=== PATIENT | female | born 1995 | race Caucasian/White ===

== ENCOUNTER 2024-02-11 11:01 | Outpatient (AMB) | payer BC, SELFPAY ==
--- NOTE | 2024-02-11 11:17 | A.OFFPC_ITS ---
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 Intake Note: new patient to establish care Emergency Communications Officer Required: No Allergies No Known Allergies Allergy (Verified 02/11/24 11:35) Medication List - Last Reconciled 02/11/24 by JANNET Quinn No Known Home Meds Tobacco use date assessed: 02/11/24 Dental Screening Dental Screen Date: 02/11/24 Did you have a dental visit in the last 12 months?: Yes Did you have a dental problem in the last 6 months where you did not have access to dental care?: No Was dental information given to patient?: Patient has dentist HPI HPI Comments History of Present Illness Details 29-year-old female with mitral valve pro lapse, ADHD, childhood asthma, hx of vertebral fracture (sports injury in childhood), Social: , Gis Mapping Technician for [employer] hx: Dad prostate ca, 1 brother, 1 sister LACY & MDD, Maternal aunt (twin) MVP, Dad w/ heart murmur and Afib Surgical: none Health Maintenance: * PAP overdue, will have this done w/ DOG GROOMER * Tdap > 10 years, will defer to DOG GROOMER * Declined flu Specialists: [facility] Here [facility] to [facility] care, no previous PCP No medical records Overall she feels well and this is looking to establish care with a primary care provider and have a complete physical exam. She was 1 month ago and plans to try conceiving in April or May of 2024. She self referred to freedom of information officer and has an upcoming appointment. She does report having some heavy periods that started in November. Reports that she was feeling dizzy and did have episodes of vomiting. This continued for a few months. She did go to urgent care and reports having normal labs along with a negative test. She was given a prescription for meclizine and felt much better. At the current time her periods are more normal. She was diagnosed with mitral valve prolapse at age 8. She was told that it was low-grade and needed to have an echocardiogram every 5 years. Reports that her last echocardiogram was 5 years ago. She would like a referral to Cardiology. She reports that she has not had any episodes related to MVP in several years. Reports that her symptoms are well managed with proper hydration. She was diagnosed with ADHD in childhood. Was treated with Ritalin and then Adderall. She stopped taking Adderall in her senior year of college as she did not like the way that this made her feel. She reports that her ADHD is well controlled without medications at the current time Has a history of childhood asthma. She is not currently having any symptoms. Does not have a rescue inhaler. Does not feel like she needs 1. Vision: normal w/o glasses, UTD on eye exam Plan: Advised patient to start vitamin. Available [id number]. Follow up with grades 1 6 tutor as scheduled. I have ordered an echocardiogram and also place a cardiac referral at [facility]. I have ordered routine screening labs today. I would like to see her back in 1 year for complete physical exam, sooner as needed [facility] Medical History (Updated 02/11/24 @ 12:48 by Josefina Renner [facility]) Mitral valve prolapse Asthma ADHD Surgical History (Updated 02/11/24 @ 11:26 by José Luis Garza MA) No pertinent past surgical history Family History Sister Mental health disorder Father Prostate cancer Hypertension Diabetes Cardiovascular disease Brother Asthma Social History (Updated 02/11/24 @ 11:23 by José Luis Garza MA) Household Members: Spouse Both parents involved: No Caregiver staying overnight: No Housing: House Are you a primary rn palliative care to a significant other at home: No Do you presently have visiting nurse or other home services: No 75 years or older and lives alone: No Alcohol intake: current Alcohol intake frequency: a few times a month Patient Tobacco Use Status: Never used Tobacco e-Cigarette/Vaping Use: Never Used Second Hand Smoke Exposure: No service: No Current occupational status: employed Current occupation: programmer analyst consultant Cognitive needs: No Hearing needs: No Vision needs: No Questionnaire PHQ-9 Over the last 2 weeks, how often have you been bothered by any of the following problems? 1. Little interest or pleasure in doing things: not at all 2. Feeling down, depressed, or hopeless: not at all 3. Trouble falling or staying asleep, or sleeping too much: not at all 4. Feeling tired or having little energy: several days 5. Poor appetite or overeating: not at all 6. Feeling bad about yourself - or that you are a failure or have let yourself or your family down: not at all 7. Trouble concentrating on things, such as reading the newspaper or watching television: not at all 8. Moving or speaking so slowly that other people could have noticed. Or the opposite - being so fidgety or restless that you have been moving around a lot more than usual: not at all 9. Thoughts that you would be better off or of hurting yourself in some way: not at all Total score: 1 Depression Screening Interpretation: Negative Depression Screening Done: Yes 31111 - PHQ-9 Billing: Yes Source: Developed by Drs. Lenard Olivarez, Anitra Awan, Elan Nice and colleagues, with an educational alexy from [employer]. Thrive Questionnaire Date Thrive assessed: 02/11/24 I am a: Patient What is your living situation today?: I have a steady place to live Within the past 12 months, did the food you bought not last and you didn't have the money to get more?: Never true Within the past 12 months, did you worry whether your food would run out before you got money to buy more?: Never true Do you have trouble paying for medicines?: No Do you have trouble getting transportation to medical appointments?: No Do you have trouble paying your heating and electricity bill?: No Do you have trouble taking care of your child, family member or friend?: No Do you have trouble with day-to-day activities such as bathing, preparing meals, shopping, managing finances, etc.?: No Are you currently unemployed and looking for a job?: No Are you interested in more education?: No Please select the resources that you would like help with: None Currently or been in a relationship where the following occur: No concerns reported THRIVE Score: 0 AUDIT C Alcohol Use Questionnaire (AUDIT-C) 1. How often do you have a drink containing alcohol?: 2-4 times a month 2. How many drinks containing alcohol do you have on a typical day when you are drinking?: 3 or 4 3. How often do you have six or more drinks on one occasion?: Never Total Score: 3 Score Reviewed/Action Taken: Yes LACY-7 AMB Questionnaire LACY-7 Date LACY - 7 assessed: 02/11/24 Feeling nervous, anxious, or on edge: 0 = Not at all Not being able to stop or control worryin = Not at all Worrying too much about different things: 0 = Not at all Trouble relaxin = Not at all Being so restless that it is hard to sit still: 0 = Not at all Becoming easily annoyed or irritable: 0 = Not at all Feeling afraid as if something awful might happen: 0 = Not at all Total LACY-7 score (0-4 normal; 5-9 mild; 10-14 moderate; 15-21 severe): 0 Source: Developed by Drs. Lenard Olivarez, Anitra Awan, Elan Nice and colleagues, with an educational alexy from [employer]. LACY-7 Assessment Billing LACY-7 Assessment Tool: LACY-7 Assessment 15379 ACT Questionnaire In the past 4 weeks, how much of the time did your asthma keep you from getting as much done at work, school or at home?: None of the time During the past 4 weeks, how often have you had shortness of breath?: Not at all During the past 4 weeks, how often did your asthma symptoms wake you up at night or earlier than usual in the morning?: Not at all During the past 4 weeks, how often have you had to use your rescue inhaler or nebulizer medication?: Not at all How would you rate your asthma control during the past 4 weeks?: Completely controlled ACT Interpretation: Negative Score: 25 Physical exam (Primary Care) Vital Signs: Last Vital Signs Pulse 60 02/11/24 11:27 Resp 13 02/11/24 11:27 BP 122/87 02/11/24 11:27 Pulse Ox 98 02/11/24 11:27 Oxygen Delivery Method Room Air 02/11/24 11:27 BMI result Body Mass Index 23.2 Tobacco/Smoking Status: Tobacco use Status Tobacco use date assessed 02/11/24 02/11/24 11:27 Patient Tobacco Use Status Never used Tobacco 02/11/24 11:27 e-Cigarette/Vaping Use Never Used 02/11/24 11:27 PHQ-9: PHQ-9 Score PHQ-9: Total score 1 02/11/24 11:51 Depression Screening Interpretation: Negative Thrive Assessment: Date of Thrive Assessment Date Thrive assessed 02/11/24 02/11/24 11:19 Currently or been in a relationship where the following occur: No concerns reported Const Other: General: Well developed, well nourished, in no acute distress. Appears stated age. Head: Normocephalic, atraumatic. Eyes: Pupils are equal, round and reactive to light and accommodation. Conjunctivae are clear. Vision grossly normal. Ears: TMs clear AU, EACS WNL Nose: Patent, without discharge. Mouth: There are no ulcers or lesions noted. No inflammation, no post nasal drip, no plaques nor exudates. Neck: Supple, no adenopathy or thyromegaly. Lungs: Clear to auscultation bilaterally. No rales, rhonchi or wheeze noted. Good air flow in all moreno. Heart: Regular rate and rhythm. No murmurs, click, rubs or gallops are noted. Abdomen: Bowel sounds present in all quadrants. The abdomen is soft, nontender, with no masses or organomegaly noted. No hernias are noted. Musculoskeletal: Joints are nontender, without swelling, redness, or effusions. Range of motion is observed to be normal. Pulses: Peripheral pulses are equal and palpable bilaterally. Extremities: No clubbing, cyanosis nor edema is noted. Neurologic: Gait and station normal. Cranial Nerves 2-12 intact. Motor strength grossly symmetrical and intact. No sensory loss. Balance normal. Skin: No rashes, ulcers, or lesions noted. Turgor is good. Skin color is good. Hair and nails are without abnormalities. Psych: Normal eye contact, affect and mood appropriate, and normal interactions. Patient is alert and appropriate to context. Coding Level of Care Code New Pt Prev Care 18-39yr(07634 Diagnoses Encounter for general adult medical examination without abnormal findings Z00.00 Mitral valve prolapse I34.1 Desire for Z31.9 Laboratory exam ordered as part of routine general medical examination Z00.00 Menorrhagia with regular cycle N92.0 Menorrhagia type: with regular cycle History of asthma Z87.09 Tetanus, diphtheria, and acellular pertussis (Tdap) vaccination declined Z28.21 Influenza vaccination declined Z28.21 Additional Codes Asthma Control Questionnaire - ACT Interpretation: Negative ([id number]) LACY-7 Assessment Billing - LACY-7 Assessment Tool: LACY-7 Assessment 13473 ([id number]) PHQ-9 - 73706 - PHQ-9 Billing: Yes ([id number]) Assessment & Plan Assessment & Plan (1) Encounter for general adult medical examination without abnormal findings: Code(s): Z00.00 - Encounter for general adult medical examination without abnormal findings (2) Mitral valve prolapse: Code(s): I34.1 - Nonrheumatic mitral (valve) prolapse Category: Medical (3) Desire for : Code(s): Z31.9 - Encounter for procreative management, unspecified Category: Medical (4) Laboratory exam ordered as part of routine general medical examination: Code(s): Z00.00 - Encounter for general adult medical examination without abnormal findings Category: Medical (5) Menorrhagia: Code(s): N92.0 - Excessive and frequent menstruation with regular cycle Category: Medical Qualifiers: Menorrhagia type: with regular cycle Qualified Code(s): N92.0 - Excessive and frequent menstruation with regular cycle (6) History of asthma: Code(s): Z87.09 - Personal history of other diseases of the respiratory system Category: Medical (7) Tetanus, diphtheria, and acellular pertussis (Tdap) vaccination declined: Code(s): Z28.21 - Immunization not carried out because of patient refusal Category: Medical (8) Influenza vaccination declined: Code(s): Z28.21 - Immunization not carried out because of patient refusal Plan . Orders: Orders Complete Blood Count no Diff Today Z00.00 - Encounter for general adult medical examination without abnormal findings Comprehensive Met. Panel Today Z00.00 - Encounter for general adult medical examination without abnormal findings Hemoglobin A1c Today Z00.00 - Encounter for general adult medical examination without abnormal findings IRON PROFILE Today Z00.00 - Encounter for general adult medical examination without abnormal findings Lipid Panel Today Z00.00 - Encounter for general adult medical examination without abnormal findings Microalbumin, Random (w Creat) Today Z00.00 - Encounter for general adult medical examination without abnormal findings Vitamin B12 and Folate Today Z00.00 - Encounter for general adult medical examination without abnormal findings CA echo transthoracic complete Today I34.1 - Nonrheumatic mitral (valve) prolapse, Z31.9 - Encounter for procreative management, unspecified TSH reflex Free T4 Today Z00.00 - Encounter for general adult medical examination without abnormal findings Vitamin D 25-OH Total Today Z00.00 - Encounter for general adult medical examination without abnormal findings Referrals Cardiology Referral I34.1 - Nonrheumatic mitral (valve) prolapse Patient Instructions: Health screenings for women You should visit your health care provider from time to time, even if you are healthy. The purpose of these visits is to: Screen for medical issues Assess your risk for future medical problems Encourage a healthy lifestyle Update vaccinations and other preventive care services Help you get to know your provider in case of an illness Information Even if you feel fine, you should still see your provider for regular checkups. These visits can help you avoid problems in the future. For example, the only way to find out if you have high blood pressure is to have it checked regularly. High blood sugar and high cholesterol levels also may not have any symptoms in the early stages. A simple blood test can check for these conditions. There are specific times when you should see your provider or receive specific health screenings. The [place] Preventive Services Task Force publishes a list of recommended screenings. Below are screening guidelines for women ages 18 to 39. BLOOD PRESSURE SCREENING Your blood pressure should be checked at least once every 3 to 5 years if: Your blood pressure is in the normal range (top number less than 120 mm Hg and bottom number less than 80 mm Hg) You don't have risk factors for high blood pressure Ask your provider if you need your blood pressure checked more often if: The top number is 120 to 129 mm Hg or the bottom number is 70 to 79 mm Hg You have diabetes, heart disease, kidney problems, are overweight, or have certain other health conditions You have a first-degree relative with high blood pressure You are Black You had high blood pressure during a If the top number is 130 mm Hg or greater or the bottom number is 80 mm Hg or greater, this is considered stage 1 hypertension. Schedule an appointment with your provider to learn how you can reduce your blood pressure. Watch for blood pressure screenings in your area. Ask your provider if you can stop in to have your blood pressure checked. BREAST CANCER SCREENING Experts do not agree about the benefits of breast self-exams in finding breast cancer or saving lives. Talk to your provider about what is best for you. A screening mammogram is not recommended for most women under age 40. Your provider may discuss and recommend mammograms, MRI scans, or ultrasounds if you have an increased risk for breast cancer, such as: A mother or sister who had breast cancer at a young age (most often starting screening earlier than the age the close relative was diagnosed) You carry a high-risk genetic marker CERVICAL CANCER SCREENING Cervical cancer screening should start at age 21 years unless your provider advises otherwise. After the first test: Women ages 21 through 29 should have a Pap test every 3 years. Exoprts do not agree on whether HPV testing is recommended for this age group. Women ages 30 through 65 should be screened with either a Pap test every 3 years or the HPV test every 5 years or both tests every 5 years (called cotesting ). Women who have been treated for precancer (cervical dysplasia) should continue to have Pap tests for 20 years after treatment or until age 65, whichever is longer. If you have had your uterus and cervix removed (total hysterectomy), and you have not been diagnosed with cervical cancer or precancer (high grade cervical neoplasia), you do not need cervical cancer screening. CHOLESTEROL SCREENING Cholesterol screening should begin at: Age 45 for women with no known risk factors for coronary heart disease Age 20 for women with known risk factors for coronary heart disease Repeat cholesterol screening should take place: Every 5 years for women with normal cholesterol levels More often if changes occur in lifestyle (including weight gain and diet) More often if you have diabetes, heart disease, kidney problems, or certain other conditions DIABETES SCREENING You should be screened for diabetes starting at age 35 and then repeated every 3 years if you have no risk factors for diabetes. Screening may need to start earlier and be repeated more often if you have other risk factors for diabetes, such as: You have a first degree relative with diabetes. You are overweight or have obesity. You have high blood pressure, prediabetes, or a history of heart disease. Screening for diabetes should be done if you are planning to become and you are overweight and have other risk factors such as high blood pressure. DENTAL EXAM Go to the dentist once or twice every year for an exam and cleaning. Your dentist will evaluate if you need more frequent visits. EYE EXAM Have an eye exam every 5 to 10 years before age 40. If you have vision problems, have an eye exam every 2 years or more often if recommended by your provider. You should have an eye exam that includes an examination of your retina (back of your eye) at least every year if you have diabetes. IMMUNIZATIONS Commonly needed vaccines include: Flu shot: get one every year. COVID-19 vaccine: ask your provider what is best for you. Tetanus-diphtheria and acellular pertussis (Tdap) vaccine: have one at or after age 19 as one of your tetanus-diphtheria vaccines if you did not receive it as an adolescent. Tetanus-diphtheria: have a booster (or Tdap) every 10 years. Varicella vaccine: receive 2 doses if you never had chickenpox or the varicella vaccine. Hepatitis B vaccine: receive 2, 3, or 4 doses, depending on your exact circumstances. Measles, mumps, and rubella (MMR) vaccine: receive 1 to 2 doses if you are not already immune to MMR. Your provider can tell you if you are immune. Ask your provider about the human papillomavirus (HPV) vaccine if: You have not received the HPV vaccine in the past You have not completed the full vaccine series (you should catch up on this shot) Ask your provider if you should receive other immunizations if you have certain health problems that increase your risk for some diseases such as pneumonia. INFECTIOUS DISEASE SCREENING Women who are sexually active should be screened for chlamydia and gonorrhea up until age 25. Women 25 years and older should be screened for chlamydia and gonorrhea if at high risk. Screening for hepatitis C: All adults ages 18 to 79 should get a one-time test for hepatitis C. people should be screened at every . Screening for human immunodeficiency virus (HIV): All people ages 15 to 65 should get a one-time test for HIV. Depending on your lifestyle and medical history, you may also need to be screened for infections such as syphilis and HIV, as well as other infections. PHYSICAL EXAM All adults should visit their provider from time to time, even if they are healthy. The purpose of these visits is to: Screen for disease Assess your risk of future medical problems Encourage a healthy lifestyle Update your vaccinations and other preventive care services Maintain a relationship with a provider in case of an illness Your height, weight, and BMI should be checked at every exam. During your exam, your provider may ask you about: Depression and anxiety Diet and exercise Alcohol and tobacco use Safety issues, such as using seat belts, smoke detectors, and intimate partner violence Your medicines and risk for interactions SKIN SELF-EXAM Your provider may check your skin for signs of skin cancer, especially if you're at high risk, such as if you: Have had skin cancer before Have close relatives with skin cancer Have a weakened immune system OTHER SCREENING Talk with your provider about colon cancer screening if you have a strong family history of colon cancer or polyps, or if you have had inflammatory bowel disease or polyps yourself. Routine bone density screening of women under 40 is not recommended. Walk-In Care (Urgent Care): We Make it Easy Walk-in for urgent medical issues such as: ? Seasonal Allergies ? Insect Bites ? Cough ? Diarrhea ? Acute Asthma Attacks ? Back, Knee or Joint Pain ? Ear Infection ? Fever without a Rash ? Headaches ? Nausea ? [place], Rash or Skin Irritation ? Sore Throat ? Sports Physicals ? Vomiting Most insurances are accepted. Patients do not need to be part of the [facility] to seek care at the walk-in clinic. Locations [address] [place] [address] , [place] [address] ? [phone] [facility] Walk-In Care in [place] provides services to ages 18 and over. Open Saturday-Saturday: 8 a.m. to 5 p.m. and Saturday: 9 a.m. to 3 p.m.* *Hours may vary due to staffing availability. To confirm Walk-In Care hours in [place], please call [phone]. [address] [place] [address] ? [phone] [facility] Walk-In Care in [place] provides services to ages 12 and over. Open Saturday-Saturday: 8 a.m. to 5 p.m. Hours may vary due to staffing availability. To confirm Walk-In Care hours in [place], please call [phone]. LABORATORY SERVICES: [facility] Lab ? Primary Location [address] [place] [address] Saturday through Saturday 6:00 AM ? 5:00 PM Saturday 7:00 AM ? 11:00 AM* [phone] The [facility] Lab is centrally located near the front entrance of the Medical Center for easy outpatient access. Convenient parking is provided for outpatients. *Hours may vary due to staffing availability. To confirm Laboratory hours for any location, please call [phone]. Offsite Location For your convenience, we offer offsite laboratory draw stations at the following locations: [address] [place] [address], [place] ? [facility] [address] [facility], [address], [place] Saturday through Saturday 7:30 AM ? 1:00 PM* [phone] *Hours may vary due to staffing availability. To confirm Laboratory hours for any location, please call [phone]. [place] ? [facility] [address] [facility] Saturday through Saturday 6:00 AM ? 3:30 PM* Saturday 6:30 AM ? 3 PM* [phone] *Hours may vary due to staffing availability. To confirm Laboratory hours for any location, please call [phone]. [address] [facility] Saturday through Saturday 7:30 AM ? 4:00 PM* [phone] *Hours may vary due to staffing availability. To confirm Laboratory hours for any location, please call [phone] [place] [address] Saturday through 9:00 AM ? 4:00 PM* *Hours may vary due to staffing availability. To confirm Laboratory hours for any location, please call [phone]. Appointments are not necessary. Walk-ins are welcome. Like all the departments throughout the [facility], our Lab undergoes frequent reviews to ensure the quality and accuracy of test results, and our staff takes special pride in its status as a nationally accredited facility. Patient Portal: ONE PATIENT. ONE RECORD. BETTER CARE. [facility] has a fully integrated, cutting- edge mobile electronic health information system that has revolutionized the way we care for our patients and manage our organization. This system improves communication and coordination enabling us to provide safe, higher-quality care, and an overall positive experience for staff and patients. Our first priority, as always, is to deliver the highest quality care possible. The system is running in the background supporting that priority. This portal is for all [facility] services and practices. If you are experiencing any technical difficulties with enrolling or logging into the Patient Portal please complete the [facility] Patient Portal Technical Support Form. [facility] now offers a new secure on-line interactive tool for patients to review their health information ? Patient Portal. This interactive web portal will enable patients and their families to take an active role in their care by providing easy, secure access to their health information via the internet. The Patient Portal provides patients with instant access to their health information, including laboratory results, medications, allergies, demographic information, visit history, and more. In addition to managing their own care, parents and health care proxies with authorized consent will appreciate the ability to access the records of those individuals for whom they provide care. Please note: if you wish to gain access (Proxy) to another patient?s portal, you will be required to come to the Medical Records Department in person at [facility]. Both the patient giving proxy access and the proxy will need to provide photo identification and complete the appropriate authorization. The Patient Portal also allows track their appointments online. The [facility] Patient Portal also saves patients time by allowing them to submit updates to their demographic and contact information prior to their visits. Portal email notifications will also alert patients to any new activity on their portal, such as test results and new appointments. In order to initially enroll in the [facility] Patient Portal, you will need to enter some required information including the following: ? your [facility] Medical Record number ? your personal home email address ? name ? date of Please note: In order to enroll in the [facility] Patient Portal, we need to have your email address on file in your electronic medical record. The email address needs to be specific for one person (yourself) in order for your Portal enrollment to be successful. You can update your email address in person with our Registration staff when you are registering for a hospital visit. Otherwise, you will need to come to the Health Information Management (Medical Records) Department at [facility]. We are open from Saturday ? Saturday from 7:30 a.m. ? 4:30 p.m. You will be required to present a photo id. Once you have successfully enrolled in the Patient Portal, you will receive a one-time user id and password for the Portal, sent to your email address. This will allow you to log into the Patient Portal within 99 hrs and reset your own logon id and password, and define personal security questions. Once your permanent login and password have been set, you can log into the [facility] Patient Portal at any time via the blue button above or from the Portal Logon button on any page of the [facility] website. [facility] encourage all of our patients to enroll in Patient Portal as it presents a valuable opportunity for patients and their families to actively participate in their care and stay healthy Welcome to [facility]. We look forward to working with you.
[2024-02-11 11:27] VITALS: BP 122/87; PULSE 60; RESP 13; O2SAT 98; BMI 23.2
== END 2024-02-11 11:59 | disposition home or self-care (01) ==
PROVIDERS: PCP Nurse Practitioner Family; Visit Provider Nurse Practitioner Family
DX: Z00.00 Encounter for general adult medical examination without abnormal findings (principal); I34.1 Nonrheumatic mitral (valve) prolapse; N92.0 Excessive and frequent menstruation with regular cycle; Z87.09 Personal history of other diseases of the respiratory system; Z28.21 Immunization not carried out because of patient refusal

== ENCOUNTER → 2024-02-11 11:01 | Outpatient (BNVA) | payer BC, SELFPAY | PROVIDERS: PCP Nurse Practitioner Family; Visit Provider Nurse Practitioner Family | DX: Z00.00 Encounter for general adult medical examination without abnormal findings (principal); I34.1 Nonrheumatic mitral (valve) prolapse; N92.0 Excessive and frequent menstruation with regular cycle; Z87.09 Personal history of other diseases of the respiratory system; Z28.21 Immunization not carried out because of patient refusal | CPT/HCPCS: 96127; 96160 ==

== ENCOUNTER 2024-03-13 10:01 | Outpatient (REF) | payer BC, SELFPAY ==
[2024-03-13 11:10] LABS: Hematocrit 39.4 % (37.0-47.0); Mean Corpuscular Hemoglobin 29.4 pg (27.0-33.0); Mean Corpuscular Volume 89.1 fL (80.0-98.0); Mean Platelet Volume 9.9 fL (9.4-12.3); Platelet Count 277 X10*3/uL (160-400); Red Blood Count 4.42 X10*6/uL (4.20-5.50); Red Cell Distribution Width 12.4 % (11.0-16.0); White Blood Count 5.1 X10*3/uL (4.8-10.8)
[2024-03-13 11:15] LABS: Estimated Average Glucose 91 mg/dL; Hemoglobin A1C 93.0201 umol/L; Hemoglobin A1c % 4.8 % (<6.0); Total Hemoglobin (HGBA1C) 3250.2345 umol/L
[2024-03-13 11:54] LABS: Alanine Aminotransferase 32 U/L (0-31); Albumin Level 4.5 g/dL (3.5-5.0); Alkaline Phosphatase 50 U/L (39-117); Anion Gap 8 (12-20); Aspartate Amino Transferase 26 U/L (5-31); Bilirubin Total 0.4 mg/dL (0.0-1.0); Blood Urea Nitrogen 7 mg/dL (9-16); Calcium 9.1 mg/dL (8.4-10.2); Carbon Dioxide 27 mmol/L (22-29); Chloride 107 mmol/L (96-108); Cholesterol 194 mg/dL (<200); Estimated Glomerular Filt Rate > 60; Glucose Random 82 mg/dL (60-115); HDL Cholesterol 59 mg/dL (>40); Iron 105 mcg/dL (30-160); LDL Cholesterol Calculated 121 mg/dL (<100); Percent Iron Saturation 41 % (15-50); Potassium 3.9 mmol/L (3.3-5.1); Sodium 138 mmol/L (135-145); Total Iron Binding Capacity 256 mcg/dL (228-428); Triglycerides 73 mg/dL (<150); Unsaturated Iron Binding 151 ug/dL
[2024-03-13 12:11] LABS: TSH reflex Free T4 0.49 uIU/mL (0.32-4.0); Vitamin D 25-OH Total 25.2 ng/mL (>30)
[2024-03-13 12:25] LABS: Folate 13.9 ng/mL (> or = 4.0); Vitamin B12 253 pg/mL (200-900)
[2024-03-13 14:42] LABS: Creatinine Urine 7.84 mg/dL; Microalbumin Urine < 5.0 mg/L
== END 2024-03-13 10:02 | disposition home or self-care (01) ==
LOC: HO.WFDLDS 10:01
PROVIDERS: Visit Provider Nurse Practitioner Family
DX: Z00.00 Encounter for general adult medical examination without abnormal findings (principal); Z13.1 Encounter for screening for diabetes mellitus
CPT/HCPCS: 36415; 80053; 80061; 82306; 82570; 82607; 82746; 83036; 83540; 84443; 85027

== ENCOUNTER 2025-02-17 08:01 | Outpatient (AMB) | payer BC, SELFPAY ==
--- NOTE | 2025-02-17 08:06 | A.OFFPC_ITS ---
Vital Signs 02/17/25 08:10 Height 5 ft 3 in Weight 136 lb 8 oz BMI 24.2 BP 108/62 Blood Pressure Location Rt brachial Position Sitting Respiration 15 Pulse 99 Pulse Source Pulse Oximeter Temp 98.5 F Temp Source Temporal Artery Scan Pulse Oximetry (%) 100 Oxygen Delivery Method Room Air Intake Visit Reasons: 1 year cPE Intake Note: Emilee presents in the office today for her annual CPE. Is last menstrual period known: Yes Last menstrual period: 01/27/25 Post menopausal: No Allergies No Known Allergies Allergy (Verified 02/17/25 08:17) Medication List - Last Reconciled 02/17/25 by Josefina Renner, TRIPE FINISHER- docosahexaenoic acid ( DHA) mg PO Tobacco use date assessed: 02/17/25 Dental Screening Dental Screen Date: 02/17/25 Did you have a dental visit in the last 12 months?: No Did you have a dental problem in the last 6 months where you did not have access to dental care?: No Was dental information given to patient?: Patient declined HPI HPI Comments History of Present Illness Details 30 year-old female with mitral valve pro lapse, ADHD, childhood asthma, hx of vertebral fracture (sports injury in childhood), Vit D def, elevated LDL Social: , Customer Operations Manager for [employer] hx: Dad prostate ca, 1 brother, 1 sister LACY & MDD, Maternal aunt (twin) MVP, Dad w/ heart murmur and Afib Surgical: none Health Maintenance: * PAP overdue, will have this done w/ AUTO BATTERY BUILDER * Tdap > 10 years, will defer to AUTO BATTERY BUILDER * Declined flu declined 02/17/25 Specialists: AUTO BATTERY BUILDER [facility] Next appt Mar 29 2025 History of Present Illness The patient is a 30 year old female presenting with a complete physical exam. Mitral Valve Prolapse: - A cardiology referral and an echocardi ogram were ordered last year for mitral valve prolapse, but the patient was unable to complete them. - The patient's insurance requested a pr ior authorization for the echocardiogram, stating it was not needed as her last five-year checkup was fine. - She attempted to schedule an appointme nt with a machine shop worker three times but never received a callback. - About a month ago, she experienced a s hort-lived episode of chest tightness described as a stabbing pain, which resolved after a popping sensation, and was associated with breathlessness. - This episode was not associated with a rm numbness or lightheadedness, which she has experienced before. - She denies current symptoms of dizzine ss, faintness, weakness, or passing out. Asthma: - The patient has a history of asthma, w hich is currently controlled without medication. Female Infertility: - The patient and her partner have been trying to conceive for almost a year without success. - She has a forthcoming yearly appointme nt with her SEX OFFENDER TREATMENT PROFESSIONAL in March to discuss this. Attention-Deficit Hyperactivity Disorder (ADHD): - She has a history of ADHD and was prev iously on medications, including Adderall, but reports her symptoms are currently controlled without medication. Health Maintenance: - She is currently taking a vit rice, having switched from one that caused nausea to her current brand, Parel. - Last year's labs from March showed s lightly high cholesterol and low vitamin D, but were otherwise normal with no anemia. - The patient has declined the flu shot, citing a past experience where she got the flu after receiving the vaccine. - She has deferred the Tdap vaccination, as it would be administered again during a future . Past Medical History - Asthma, controlled without medication. - ADHD, previously treated with Adderall , currently managed without medication. - Mitral valve prolapse. - No history of anemia. - No known drug allergies. Past Surgical History - The patient denies any surgeries since her last visit. Family History - No changes to family medical history w ere reported. Social History - Employment: The patient is employed at [employer]. - Family Planning: The patient and her p artner have been trying to conceive for almost one year and she has an upcoming appointment with her SEX OFFENDER TREATMENT PROFESSIONAL to discuss this. - Mood: The patient reports her mood is stable and screenings for anxiety and depression were negative. Review of Systems - Cardiovascular: Reports one recent, br ief episode of stabbing chest pain and tightness, denies dizziness, syncope or weakness with the episode. - Respiratory: Reports associated dyspne a with recent chest pain episode, denies cough. - Constitutional: Denies fever. - GI: Reports nausea with a previous pre clair vitamin, denies current issues with bowel movements. - : Denies issues with urination. - Vision: Denies vision complaints, does not wear glasses. - Skin: Denies skin problems or concerns . - Psychiatric: Reports stable mood, cristiane es anxiety or depression. Physical Exam General: Well developed, well nourished, in no acute distress. Appears stated age. Head: Normocephalic, atraumatic. Eyes: Pupils are equal, round and reactive to light and accommodation. Conjunctivae are clear. Vision grossly normal. Ears: TMs clear AU, EACS WNL Nose: Patent, without discharge. Mouth: There are no ulcers or lesions noted. No inflammation, no post nasal drip, no plaques nor exudates. Neck: Supple, no adenopathy or thyromegaly. Lungs: Clear to auscultation bilaterally. No rales, rhonchi or wheeze noted. Good air flow in all moreno. Heart: Regular rate and rhythm. No murmurs, click, rubs or gallops are noted. Abdomen: Bowel sounds present in all quadrants. The abdomen is soft, nontender, with no masses or organomegaly noted. No hernias are noted. Musculoskeletal: Joints are nontender, without swelling, redness, or effusions. Range of motion is observed to be normal. Pulses: Peripheral pulses are equal and palpable bilaterally. Extremities: No clubbing, cyanosis nor edema is noted. Neurologic: Gait and station normal. Cranial Nerves 2-12 intact. Motor strength grossly symmetrical and intact. No sensory loss. Balance normal. Skin: No rashes, ulcers, or lesions noted. Turgor is good. Skin color is good. Hair and nails are without abnormalities. Psych: Normal eye contact, affect and mood appropriate, and normal interactions. Patient is alert and appropriate to context. Results - Labs (from March 13 of previous yea r): No anemia, normal electrolytes, normal kidney function, no diabetes. Cholesterol was slightly high and vitamin D was slightly low. Medical Decision Making The patient is a 30-year-old female here for a wellness visit. She has well- controlled asthma and ADHD without medication. Her primary concerns are preconception planning, having tried to conceive for a year, and follow-up on her mitral valve prolapse (MVP). Given her history of MVP and plans for , a baseline echocardiogram is crucial. Despite a previous attempt being denied by insurance, I will reorder the echocardiogram, especially with her recent episode of chest pain and shortness of breath, as cardiac evaluation is warranted before the hemodynamic changes of . A cardiology consultation is also recommended, even if the echocardiogram is normal, to ensure she is cleared for . Regarding her preconception health, she is appropriately taking a vitamin. We discussed immunizations; she will defer Tdap as it is given during and has declined the flu shot. To ensure her overall wellness, we will repeat baseline labs including a check of her cholesterol and vitamin D levels, which were borderline on her last labs. Her infertility concerns are being addressed with her SEX OFFENDER TREATMENT PROFESSIONAL. Plan Health Maintenance - Annual wellness labs will be ordered a nd can be drawn today to reassess baseline health, including cholesterol and vitamin D levels. - The patient will continue her current vitamin (Parel). - The Tdap vaccination will be deferred at this time, as it is administered during . - The patient declined the influenza vac cination. - She will schedule a follow-up physical exam in one year or sooner if any problems arise. 1. Mitral Valve Prolapse - An order will be placed to repeat the echocardiogram to survey the mitral valve prolapse, especially in light of her recent chest pain symptoms and plans for . - A cardiology consultation will be arra nged following the echocardiogram to assess cardiac health prior to conception. - The patient will be instructed to noti fy the office via message if she encounters any issues with scheduling or insurance authorization for the test. 2. Female Infertility - The patient will follow up with her OB /AUTO BATTERY BUILDER at her appointment on March 29 to discuss having been unable to conceive after a year of trying. 3. Asthma - Condition is stable and controlled wit hout medication; no changes to management at this time. 4. Attention-Deficit Hyperactivity Disor laurel (Adhd) - Condition is stable and symptoms are c ontrolled without medication; no changes to management at this time. Patient Instructions - We will order lab work for you to comp lete today to check on your overall health. - We are also ordering an echocardiogram (a heart ultrasound) for you. Please let us know if you have any trouble with your insurance covering this test by sending a message through the patient portal. - We will contact you with your results and discuss the next steps, which will likely include a visit with a medical authorization specialist (machine shop worker) before you have a baby. - Continue taking your vitamin as you have been. - Please schedule another physical exam with me in one year. If any new problems or concerns come up before then, please send a message so we can address them. - RTO 1 year CPE sooner PRN Consent Patient was informed and verbally consented to the use of an ambient scribe for clinic note documentation during this visit. ON LICENSE OF [facility] Medical History (Updated 02/17/25 @ 08:39 by JANNET Quinn) ADHD Asthma Mitral valve prolapse Surgical History (Updated 02/11/24 @ 11:26 by José Luis Garza MA) No pertinent past surgical history Family History Sister Mental health disorder Father Prostate cancer Hypertension Diabetes Cardiovascular disease Brother Asthma Social History (Updated 02/17/25 @ 08:09 by RODERICK Tinsley) Household Members: Spouse Both parents involved: No Caregiver staying overnight: No Housing: House Are you a primary child care worker to a significant other at home: No Do you presently have visiting nurse or other home services: No 75 years or older and lives alone: No Alcohol intake: current Alcohol intake frequency: a few times a month Patient Tobacco Use Status: Never used Tobacco e-Cigarette/Vaping Use: Never Used Second Hand Smoke Exposure: No service: No Current occupational status: employed Current occupation: program trainer Cognitive needs: No Hearing needs: No Vision needs: No Female Reproductive History Menstrual Date of last menstrual period: 01/27/25 Questionnaire PHQ-9 Over the last 2 weeks, how often have you been bothered by any of the following problems? 1. Little interest or pleasure in doing things: not at all 2. Feeling down, depressed, or hopeless: not at all 3. Trouble falling or staying asleep, or sleeping too much: not at all 4. Feeling tired or having little energy: not at all 5. Poor appetite or overeating: not at all 6. Feeling bad about yourself - or that you are a failure or have let yourself or your family down: not at all 7. Trouble concentrating on things, such as reading the newspaper or watching television: not at all 8. Moving or speaking so slowly that other people could have noticed. Or the opposite - being so fidgety or restless that you have been moving around a lot more than usual: not at all 9. Thoughts that you would be better off or of hurting yourself in some way: not at all Total score: 0 Depression Screening Interpretation: Negative Depression Screening Done: Yes [id number] - PHQ-9 Billing: Yes Source: Developed by Drs. Lenard Olivarez, Anitra Awan, Elan Nice and colleagues, with an educational alexy from [employer]. Thrive Questionnaire Date Thrive assessed: 02/17/25 I am a: Patient What is your living situation today?: I have a steady place to live Within the past 12 months, did the food you bought not last and you didn't have the money to get more?: Never true Within the past 12 months, did you worry whether your food would run out before you got money to buy more?: Never true Do you have trouble paying for medicines?: No Do you have trouble getting transportation to medical appointments?: No Do you have trouble paying your heating and electricity bill?: No Do you have trouble taking care of your child, family member or friend?: No Do you have trouble with day-to-day activities such as bathing, preparing meals, shopping, managing finances, etc.?: No Are you currently unemployed and looking for a job?: No Are you interested in more education?: No Please select the resources that you would like help with: None Currently or been in a relationship where the following occur: No concerns reported THRIVE Score: 0 AUDIT C Alcohol Use Questionnaire (AUDIT-C) 1. How often do you have a drink containing alcohol?: Monthly or less 2. How many drinks containing alcohol do you have on a typical day when you are drinking?: 3 or 4 3. How often do you have six or more drinks on one occasion?: Never Total Score: 2 Score Reviewed/Action Taken: Yes LACY-7 AMB Questionnaire LACY-7 Date LACY - 7 assessed: 02/17/25 Feeling nervous, anxious, or on edge: 0 = Not at all Not being able to stop or control worryin = Not at all Worrying too much about different things: 0 = Not at all Trouble relaxin = Not at all Being so restless that it is hard to sit still: 0 = Not at all Becoming easily annoyed or irritable: 0 = Not at all Feeling afraid as if something awful might happen: 0 = Not at all Total LACY-7 score (0-4 normal; 5-9 mild; 10-14 moderate; 15-21 severe): 0 Source: Developed by Drs. Lenard Olivarez, Anitra Awan, Elan Nice and colleagues, with an educational alexy from [employer]. LACY-7 Assessment Billing LACY-7 Assessment Tool: LACY-7 Assessment 62822 Physical exam (Primary Care) Vital Signs: Last Vital Signs Temp 98.5 F 02/17/25 08:10 Pulse 99 02/17/25 08:10 Resp 15 02/17/25 08:10 BP 108/62 02/17/25 08:10 Pulse Ox 61 L 02/17/25 08:10 Oxygen Delivery Method Room Air 02/17/25 08:10 BMI result Body Mass Index 24.2 Tobacco/Smoking Status: Tobacco use Status Tobacco use date assessed 02/17/25 02/17/25 08:13 Patient Tobacco Use Status Never used Tobacco 02/17/25 08:13 e-Cigarette/Vaping Use Never Used 02/17/25 08:13 PHQ-9: PHQ-9 Score PHQ-9: Total score 0 02/17/25 08:13 Depression Screening Interpretation: Negative Thrive Assessment: Date of Thrive Assessment Date Thrive assessed 02/17/25 02/17/25 08:13 Currently or been in a relationship where the following occur: No concerns reported Coding Level of Care Code Est Pt Prev Care 18-39y(55181) Complex visit Add On G2211 Diagnoses Adult general medical exam Z00.00 ADHD F90.9 Mitral valve prolapse I34.1 Laboratory exam ordered as part of routine general medical examination Z00.00 History of asthma Z87.09 Desire for Z31.9 SOB (shortness of breath) R06.02 Chest pain R07.9 Influenza vaccination declined Z28.21 Vitamin D deficiency E55.9 Elevated LDL cholesterol level E78.00 Additional Codes LACY-7 Assessment Billing - LACY-7 Assessment Tool: LACY-7 Assessment 62071 ([id number]) PHQ-9 - 70747 - PHQ-9 Billing: Yes ([id number]) Assessment & Plan Assessment & Plan (1) Adult general medical exam: Onset Date: ~02/17/25 Code(s): Z00.00 - Encounter for general adult medical examination without abnormal findings Category: Medical (2) ADHD: Code(s): F90.9 - Attention-deficit hyperactivity disorder, unspecified type Category: Medical (3) Mitral valve prolapse: Code(s): I34.1 - Nonrheumatic mitral (valve) prolapse Category: Medical (4) Laboratory exam ordered as part of routine general medical examination: Code(s): Z00.00 - Encounter for general adult medical examination without abnormal findings Category: Medical (5) History of asthma: Code(s): Z87.09 - Personal history of other diseases of the respiratory system Category: Medical (6) Desire for : Code(s): Z31.9 - Encounter for procreative management, unspecified Category: Medical (7) SOB (shortness of breath): Code(s): R06.02 - Shortness of breath Category: Medical (8) Chest pain: Code(s): R07.9 - Chest pain, unspecified Category: Medical (9) Influenza vaccination declined: Onset Date: ~02/17/25 Code(s): Z28.21 - Immunization not carried out because of patient refusal Category: Medical (10) Vitamin D deficiency: Code(s): E55.9 - Vitamin D deficiency, unspecified Category: Medical (11) Elevated LDL cholesterol level: Code(s): E78.00 - Pure hypercholesterolemia, unspecified Category: Medical Plan . Orders: Orders Complete Blood Count no Diff Today Z00.00 - Encounter for general adult medical examination without abnormal findings Comprehensive Met. Panel Today Z00.00 - Encounter for general adult medical examination without abnormal findings Hemoglobin A1c Today Z00.00 - Encounter for general adult medical examination without abnormal findings Microalbumin, Random (w Creat) Today Z00.00 - Encounter for general adult medical examination without abnormal findings TSH reflex Free T4 Today Z00.00 - Encounter for general adult medical examination without abnormal findings CA echo transthoracic complete Today I34.1 - Nonrheumatic mitral (valve) prolapse, R06.02 - Shortness of breath, R07.9 - Chest pain, unspecified, Z31.9 - Encounter for procreative management, unspecified Lipid Panel Today Z00.00 - Encounter for general adult medical examination without abnormal findings Vitamin B12 and Folate Today Z00.00 - Encounter for general adult medical examination without abnormal findings Vitamin D 25-OH Total Today Z00.00 - Encounter for general adult medical examination without abnormal findings Patient Instructions: Health screenings for women You should visit your health care provider from time to time, even if you are healthy. The purpose of these visits is to: Screen for medical issues Assess your risk for future medical problems Encourage a healthy lifestyle Update vaccinations and other preventive care services Help you get to know your provider in case of an illness Information Even if you feel fine, you should still see your provider for regular checkups. These visits can help you avoid problems in the future. For example, the only way to find out if you have high blood pressure is to have it checked regularly. High blood sugar and high cholesterol levels also may not have any symptoms in the early stages. A simple blood test can check for these conditions. There are specific times when you should see your provider or receive specific health screenings. The [place] Preventive Services Task Force publishes a list of recommended screenings. Below are screening guidelines for women ages 18 to 39. BLOOD PRESSURE SCREENING Your blood pressure should be checked at least once every 3 to 5 years if: Your blood pressure is in the normal range (top number less than 120 mm Hg and bottom number less than 80 mm Hg) You don't have risk factors for high blood pressure Ask your provider if you need your blood pressure checked more often if: The top number is 120 to 129 mm Hg or the bottom number is 70 to 79 mm Hg You have diabetes, heart disease, kidney problems, are overweight, or have certain other health conditions You have a first-degree relative with high blood pressure You are Black You had high blood pressure during a If the top number is 130 mm Hg or greater or the bottom number is 80 mm Hg or greater, this is considered stage 1 hypertension. Schedule an appointment with your provider to learn how you can reduce your blood pressure. Watch for blood pressure screenings in your area. Ask your provider if you can stop in to have your blood pressure checked. BREAST CANCER SCREENING Experts do not agree about the benefits of breast self-exams in finding breast cancer or saving lives. Talk to your provider about what is best for you. A screening mammogram is not recommended for most women under age 40. Your provider may discuss and recommend mammograms, MRI scans, or ultrasounds if you have an increased risk for breast cancer, such as: A mother or sister who had breast cancer at a young age (most often starting screening earlier than the age the close relative was diagnosed) You carry a high-risk genetic marker CERVICAL CANCER SCREENING Cervical cancer screening should start at age 21 years unless your provider advises otherwise. After the first test: Women ages 21 through 29 should have a Pap test every 3 years. Exoprts do not agree on whether HPV testing is recommended for this age group. Women ages 30 through 65 should be screened with either a Pap test every 3 years or the HPV test every 5 years or both tests every 5 years (called cotesting ). Women who have been treated for precancer (cervical dysplasia) should continue to have Pap tests for 20 years after treatment or until age 65, whichever is longer. If you have had your uterus and cervix removed (total hysterectomy), and you have not been diagnosed with cervical cancer or precancer (high grade cervical neoplasia), you do not need cervical cancer screening. CHOLESTEROL SCREENING Cholesterol screening should begin at: Age 45 for women with no known risk factors for coronary heart disease Age 20 for women with known risk factors for coronary heart disease Repeat cholesterol screening should take place: Every 5 years for women with normal cholesterol levels More often if changes occur in lifestyle (including weight gain and diet) More often if you have diabetes, heart disease, kidney problems, or certain other conditions DIABETES SCREENING You should be screened for diabetes starting at age 35 and then repeated every 3 years if you have no risk factors for diabetes. Screening may need to start earlier and be repeated more often if you have other risk factors for diabetes, such as: You have a first degree relative with diabetes. You are overweight or have obesity. You have high blood pressure, prediabetes, or a history of heart disease. Screening for diabetes should be done if you are planning to become and you are overweight and have other risk factors such as high blood pressure. DENTAL EXAM Go to the dentist once or twice every year for an exam and cleaning. Your dentist will evaluate if you need more frequent visits. EYE EXAM Have an eye exam every 5 to 10 years before age 40. If you have vision problems, have an eye exam every 2 years or more often if recommended by your provider. You should have an eye exam that includes an examination of your retina (back of your eye) at least every year if you have diabetes. IMMUNIZATIONS Commonly needed vaccines include: Flu shot: get one every year. COVID-19 vaccine: ask your provider what is best for you. Tetanus-diphtheria and acellular pertussis (Tdap) vaccine: have one at or after age 19 as one of your tetanus-diphtheria vaccines if you did not receive it as an adolescent. Tetanus-diphtheria: have a booster (or Tdap) every 10 years. Varicella vaccine: receive 2 doses if you never had chickenpox or the varicella vaccine. Hepatitis B vaccine: receive 2, 3, or 4 doses, depending on your exact circumstances. Measles, mumps, and rubella (MMR) vaccine: receive 1 to 2 doses if you are not already immune to MMR. Your provider can tell you if you are immune. Ask your provider about the human papillomavirus (HPV) vaccine if: You have not received the HPV vaccine in the past You have not completed the full vaccine series (you should catch up on this shot) Ask your provider if you should receive other immunizations if you have certain health problems that increase your risk for some diseases such as pneumonia. INFECTIOUS DISEASE SCREENING Women who are sexually active should be screened for chlamydia and gonorrhea up until age 25. Women 25 years and older should be screened for chlamydia and gonorrhea if at high risk. Screening for hepatitis C: All adults ages 18 to 79 should get a one-time test for hepatitis C. people should be screened at every . Screening for human immunodeficiency virus (HIV): All people ages 15 to 65 should get a one-time test for HIV. Depending on your lifestyle and medical history, you may also need to be screened for infections such as syphilis and HIV, as well as other infections. PHYSICAL EXAM All adults should visit their provider from time to time, even if they are healthy. The purpose of these visits is to: Screen for disease Assess your risk of future medical problems Encourage a healthy lifestyle Update your vaccinations and other preventive care services Maintain a relationship with a provider in case of an illness Your height, weight, and BMI should be checked at every exam. During your exam, your provider may ask you about: Depression and anxiety Diet and exercise Alcohol and tobacco use Safety issues, such as using seat belts, smoke detectors, and intimate partner violence Your medicines and risk for interactions SKIN SELF-EXAM Your provider may check your skin for signs of skin cancer, especially if you're at high risk, such as if you: Have had skin cancer before Have close relatives with skin cancer Have a weakened immune system OTHER SCREENING Talk with your provider about colon cancer screening if you have a strong family history of colon cancer or polyps, or if you have had inflammatory bowel disease or polyps yourself. Routine bone density screening of women under 40 is not recommended.
[2025-02-17 08:10] VITALS: BP 108/62; PULSE 99; RESP 15; TEMP 36.9; O2SAT 100; BMI 24.2
== END 2025-02-17 08:36 | disposition home or self-care (01) ==
LOC: HO.HMCFM 08:02
PROVIDERS: PCP Nurse Practitioner Family; Visit Provider Nurse Practitioner Family
DX: Z00.00 Encounter for general adult medical examination without abnormal findings (principal); F90.9 Attention-deficit hyperactivity disorder, unspecified type; I34.1 Nonrheumatic mitral (valve) prolapse; Z87.09 Personal history of other diseases of the respiratory system; Z31.9 Encounter for procreative management, unspecified; R06.02 Shortness of breath; R07.9 Chest pain, unspecified; Z28.21 Immunization not carried out because of patient refusal; E55.9 Vitamin D deficiency, unspecified; E78.00 Pure hypercholesterolemia, unspecified

== ENCOUNTER 2025-02-17 08:01 | Outpatient (REF) | payer BC, SELFPAY ==
[2025-02-17 11:32] LABS: Hematocrit 43.8 % (37.0-47.0); Hemoglobin 14.6 g/dl (12.0-16.0); Mean Corpuscular HGB Conc 33.3 g/dl (31.0-35.0); Mean Corpuscular Hemoglobin 29.2 pg (27.0-33.0); Mean Corpuscular Volume 87.6 fL (80.0-98.0); NRBC Abs Auto 0.000 X10*3/uL (0.0-0.012); NRBC Pct Auto 0.0 /100WBC (0.0-0.2); Platelet Count 285 X10*3/uL (160-400); Red Blood Count 5.00 X10*6/uL (4.20-5.50); White Blood Count 5.1 X10*3/uL (4.8-10.8)
[2025-02-17 12:35] LABS: Alanine Aminotransferase 33 U/L (0-31); Albumin Level 5.1 g/dL (3.5-5.0); Alkaline Phosphatase 47 U/L (39-117); Anion Gap 8 (12-20); Aspartate Amino Transferase 36 U/L (5-31); Blood Urea Nitrogen 16 mg/dL (9-16); Calcium 10.1 mg/dL (8.4-10.2); Carbon Dioxide 26 mmol/L (22-29); Chloride 108 mmol/L (96-108); Cholesterol 202 mg/dL (<200); Estimated Glomerular Filt Rate > 60; HDL Cholesterol 78 mg/dL (>40); Potassium 4.4 mmol/L (3.3-5.1); Sodium 138 mmol/L (135-145); Total Protein 7.7 g/dL (6.5-8.0); Triglycerides 71 mg/dL (<150)
[2025-02-17 12:45] LABS: Folate 14.8 ng/mL (> or = 4.0); Vitamin B12 310 pg/mL (200-900)
== END 2025-02-17 08:02 | disposition home or self-care (01) ==
LOC: HO.WFDLDS 08:01
PROVIDERS: PCP Nurse Practitioner Family; Visit Provider Nurse Practitioner Family
DX: Z00.00 Encounter for general adult medical examination without abnormal findings (principal); Z31.9 Encounter for procreative management, unspecified; Z28.21 Immunization not carried out because of patient refusal; F90.9 Attention-deficit hyperactivity disorder, unspecified type; I34.1 Nonrheumatic mitral (valve) prolapse; R06.02 Shortness of breath; R07.9 Chest pain, unspecified; E55.9 Vitamin D deficiency, unspecified; E78.00 Pure hypercholesterolemia, unspecified; Z87.09 Personal history of other diseases of the respiratory system
CPT/HCPCS: 36415; 80053; 80061; 82043; 82306; 82570; 82607; 82746; 83036; 84443; 85027; 96127